=== PATIENT | female | born 2000 | race Two or more races ===

== ENCOUNTER 2023-07-06 12:06 | Emergency (ER) | payer BC ==
[~2023-07-06] VITALS: Ht 165.1 cm; Wt 136.0 kg
[2023-07-06 12:18] VITALS: BP 132/89; PULSE 92; RESP 18; TEMP 98.1; O2SAT 100
[2023-07-06 14:43] LABS: BASOPHILS % 0.4 % (0.0-2.0); EOSINOPHILS % 1.5 % (0.0-5.0); HEMATOCRIT. 28.9 % (36.0-48.0); HEMOGLOBIN. 8.6 g/dL (12.0-16.0); LYMPHOCYTES % 24.4 % (20.0-50.0); MEAN CORPUSCULAR HEMOGLOBIN 19.4 pg (28.0-32.0); MEAN CORPUSCULAR HGB CONC 29.9 g/dL (31.0-37.0); MEAN CORPUSCULAR VOLUME 64.9 fL (81.0-99.0); MEAN PLATELET VOLUME 8.4 fl (7.4-10.4); MONOCYTES % 9.2 % (2.0-8.0); NEUTROPHILS % 64.5 % (40.0-76.0); PLATELET 439 x1000/uL (130-400); RED BLOOD CELL COUNT 4.45 mill/uL (4.2-5.4)
[2023-07-06 14:44] LABS: DIFFERENTIAL COMMENT 1
[2023-07-06 14:45] LABS: ADD RBC MORPHOLOGY YES
[2023-07-06 14:55] LABS: CALCIUM 8.7 mg/dL (8.7-10.4); CARBON DIOXIDE 27 mEq/L (21-32); CHLORIDE 105 mEq/L (98-107); CREATININE 0.7 mg/dL (0.6-1.0); GLUCOSE 94 mg/dL (70-105); POTASSIUM 3.8 mEq/L (3.5-5.1); SODIUM 136 mEq/L (136-145); UREA NITROGEN BLOOD 9 mg/dL (9-23)
[2023-07-06 15:03] LABS: PLATELET ESTIMATE SLIGHTLY INCREASED
[2023-07-06 15:04] LABS: HYPOCHROMASIA 1+; MICROCYTOSIS 2+
[2023-07-06 15:21] LABS: HCG SCREEN NEGATIVE
[2023-07-06] MEDS ORDERED: METH-653 MT (16:03)
[2023-07-06] MEDS ORDERED: IBUP-2029 MT (16:03)
== END 2023-07-06 15:35 | disposition home or self-care (01) ==
LOC: ER 12:32
DX: R25.2 Cramp and spasm (principal); M79.669 Pain in unspecified lower leg; D64.9 Anemia, unspecified
CPT/HCPCS: 36415; 80048; 84703; 85025; 93970; 99284